=== PATIENT | female | born 1955 | race Caucasian/White ===

== ENCOUNTER → 2016-12-21 | Outpatient (CLI) | payer BC ==
[~2016-12-21] MED LIST: ALBUTEROL0.09 MG/A2 IH; MULTI-VITAMIN1 EACH PO
--- NOTE | ~2016-12-21 | ST ---
[place], [place] EXERCISE STRESS TEST REPORT NAME: [facility]ORD [facility]: [id number] UNIT #: [id number] ROOM: DOCTOR: ALE HO MD BIRTHDATE: [birth year] DOS: 12/21/2016 The patient exercise portion of the exercise stress test, the patient walked on the Rehan protocol for a duration of 6 minutes. Heart rate is 140, which is about 90% of predicted heart rate. Procedure terminated on completion of protocol. Baseline cardiogram sinus rhythm with poor R-wave progression. With exercise, no new EKG changes. No chest discomfort. No dysrhythmia. Blood pressure and heart rate response was normal with adequate double product. FINAL IMPRESSION: No EKG changes with exercise. No chest pain with exercise. No dysrhythmia with exercise. Blood pressure and heart rate responses normal. This is a negative exercise stress test by EKG criteria. ALE HO MD CM:STRESS:EXERCISE STRESS TEST REPORT [id number] ALE HO MD
--- NOTE | 2016-12-21 07:00 | NUR ---
INFORMED CONSENT OBTAINED FOR STANDARG GXT WITH DR. HO. RESTING EKG NSR WITH A RESTING HR OF 60 WITH BP OF 130/68 AND HR OF 65 WITH BP OF 122/60. PT COMPLETED 6:00 OF A 2:00 DOMINIQUE PROTOCOL WITH COMPLETION OF STAGE III AT 3.4 MPH AND 14% GRADE. REACHED A PEAK HR OF 141 WHICH IS 90% OF PREDICTED MAX WITH A PEAK BP OF 184/50. TEST TERMINATED BECAUSE OF FATIGUE. HAD NO CHEST PAIN OR ANY EKG CHANGES. HAS A GOOD EXERCISE. NEGATIVE STANDARD GXT AT 90% OF PMHR. LAST RECOVERY HR OF 80 WITH BP OF 158/64. DISCHARGED IN STABLE CONDITION.
== END | disposition home or self-care (01) ==
LOC: CARD 02:58
DX: R07.89 Other chest pain (principal)

== ENCOUNTER 2018-01-18 12:01 | Inpatient (IN) | payer OTHER ==
[~2018-01-18] VITALS: Ht 157.5 cm; Wt 72.6 kg
--- NOTE | ~2018-01-18 | CON ---
[place], [place] REPORT OF CONSULTATION NAME[id number] UNIT #: [id number] ROOM: 403 DOCTOR: JUAN PARISI MD BIRTHDATE: [birth year] DOS: 01/18/2018 REASON FOR CONSULTATION: New onset atrial fibrillation. HISTORY OF PRESENT ILLNESS: The patient is a 62-year-old woman who has no previous history of heart disease. She is very active and exercises on a daily basis. She tells me that about 2-3 weeks ago, she began kickboxing. She states that when she started doing that she began having episodes of palpitations after her workout. The palpitations would last 50 minutes to an hour and typically improved spontaneously. They did make her feel lightheaded, but she denied any focal weakness. Today, she felt like she might almost pass out and therefore became frightened and came to the Emergency Room. In the Emergency Room, she was found to be in atrial fibrillation with a rapid ventricular response. The heart rate in the Emergency Room was 120. With rest she did convert spontaneously from atrial fibrillation, which was her admission rhythm to sinus rhythm. She was admitted to the hospital for further evaluation and we were asked to see her. The patient denies any history of hypertension or diabetes. She does not use any recreational drugs or decongestants. She denies any history of diabetes, myocardial infarction or stroke. She has had intermittent chest pains in the last year. An exercise stress test done one year ago and supervised by Dr. Vo was negative at 90% maximum predicted heart rate. PAST MEDICAL HISTORY: Includes, 1. Chest pain. The patient was evaluated for chest pain in 12/2016 without any cardiac etiology found. 2. Stress test 12/21/2016, 6 minutes Rehan protocol 90% maximum predicted heart rate. No EKG changes, no arrhythmias, no chest pain, low risk study. 3. The patient was hyperglycemic with a sugar of 144 on admission to the hospital on this occasion. MEDICATIONS PRIOR TO ADMISSION: Albuterol and a multivitamin. REVIEW OF SYSTEMS: The patient denies diplopia or loss of vision. She did have lightheadedness when she had the palpitations, but feels well now, she has had some discomfort in her chest when her heart is racing. She denies nausea or vomiting. She denies fevers, chills, sweats or recent weight change. She denies orthopnea or PND. She denies any recent syncopal episodes. She denies hemoptysis or hematemesis. She denies heat or cold intolerance. She denies polyuria, polydipsia. She denies change in bowel or bladder habits and denies blood in her stools or urine. She denies any peripheral edema. She did have some back pain after an accident lifting objects at home. This has resolved. The remainder of the review of systems is negative except as noted above. FAMILY HISTORY: Her mother had lung cancer and at age 79. Mother also had a history of an SD at a later age. Her father at 79 from Parkinson's disease. ALLERGIES: THE PATIENT LISTS AN ALLERGY TO CEDAR WOOD. [place], [place] REPORT OF CONSULTATION NAME: CARMELA RUTHERFORD UNIT #: [id number] ROOM: [facility] DOCTOR: JUNA PARISI MD BIRTHDATE: [birth year] SOCIAL HISTORY: The patient is unmarried. She was a smoker, but quit 10 years ago. She does not consume any alcohol or illegal drugs. PHYSICAL EXAMINATION: GENERAL: The patient is well-nourished white female who is awake, alert and oriented. VITAL SIGNS: Pulse is 64 and regular, blood pressure is 118/63. She is afebrile. She weighs 72.6 kg and has a body mass index of 29.3. HEENT: Normocephalic and atraumatic. Extraocular muscles are intact. Sclerae are clear. Pupils equal, round and react to light. The oral mucosa is moist. Tongue is midline. NECK: Supple. She has no jugular distention. Carotids are full. She has no bruits. She has no neck or supraclavicular masses and no thyromegaly. RESPIRATORY: Respirations are unlabored. Her chest is clear to auscultation and percussion. She has no presacral edema or chest wall tenderness. CARDIOVASCULAR: Her heart has a regular rhythm without rubs or gallops. She has a grade 2/6 holosystolic murmur at the apex. No diastolic murmurs are present. The PMI is not displaced. There is no precordial heave, lift or thrill. ABDOMEN: Soft and normally active without masses, organomegaly or bruits. EXTREMITIES: Showed no edema. Peripheral pulses are palpable in the feet bilaterally. LABORATORY DATA: I reviewed her electrocardiogram. It did show atrial fibrillation with a rapid ventricular response on admission. A followup tracing after she converted to sinus rhythm showed sinus rhythm at a rate of 62 with nonspecific T-wave flattening. TSH is normal. Serial troponin levels have been normal. IMPRESSIONS: 1. New onset atrial fibrillation. The patient does have risk factors of female gender, possible glucose intolerance, and age of almost 63 years. I think that her risk of stroke is much higher than average and therefore she should be managed with long-term anticoagulation for stroke prophylaxis. I have started her on Xarelto for this. I also think that she should be on a beta chon for the time being to help prevent exercise-induced arrhythmias. I did start her on metoprolol for this. We will be getting an echocardiogram to look for structural heart disease. If that is normal and she is responding well to the medications. She can be discharged to home for outpatient followup. Since she had a normal stress test within the last year, I do not think we need to repeat that at this time. I thank the hospitalist physicians for asking our advice regarding her care. [place], [place] REPORT OF CONSULTATION NAME: CARMELA RUTHERFORD UNIT #: [id number] ROOM: 403 DOCTOR: JUAN PARISI MD BIRTHDATE: [birth year] JUAN PARISI MD CM:CONSTR:REPORT OF CONSULTATION 20 01/19/18 0412 interface
--- NOTE | ~2018-01-18 | PR ---
[place], [place] PROGRESS NOTE NAME: [id number] UNIT #: [id number] ROOM: 403 DOCTOR: JUAN PARISI MD BIRTHDATE: [birth year] DOS: 01/19/2018 SUBJECTIVE: The patient was seen at her bedside today 01/19/2018 for followup of her newly documented atrial fibrillation. She has felt well overnight and has remained in sinus rhythm. She was placed on metoprolol and Xarelto and has tolerated the drugs well. Her TSH was normal. I reviewed her echocardiogram today. It showed normal left ventricular size and function with mildly enlarged left atrium. There was no valve disease, but there was Doppler evidence for stage 2 left ventricular diastolic relaxation abnormalities. PHYSICAL EXAMINATION: VITAL SIGNS: Her pulse is 53 and regular, blood pressure is 127/70. She is afebrile. She weighs 72.6 kilograms. NECK: Supple. She has no jugular distention. Carotids are full. LUNGS: Respirations are unlabored. Chest is clear. HEART: Has a regular rhythm with no rubs or gallops. She has grade 2/6 holosystolic murmur at the apex, but no diastolic murmurs. ABDOMEN: Not benign. EXTREMITIES: Showed no edema. IMPRESSION: New onset atrial fibrillation. PLAN: The patient is back in sinus rhythm and tolerating a beta chon and a direct oral anticoagulation medications without problems. I will discharge her to home on these medications. I would like to follow up with her in the office in about a month. I thank the hospitalist physicians for asking our advice regarding her care. JUAN PARISI MD CM:PNTRANS [id number] JUAN PARISI MD 01/19/18 1236 interface
--- NOTE | ~2018-01-18 | EKG ---
[place], [place] ELECTROCARDIOGRAM REPORT NAME: CARMELA RUTHERFORD UNIT #: [id number] ROOM: 403 DOCTOR: ALBINA DRAFT REPORT BIRTHDATE: [birth year] [facility] Test Date: 2018-01-18 Test Time: 19:12:36 Pat Name: CARMELA RUTHERFORD Department: Room: 403 1 Gender: F Claims Director: JOVANNY : 1955 Requested By: DARIELA HATHAWAY Order Number: [id number] Reading MD: Terence Molina MD Measurements Intervals [place] Rate: 62 P: 66 ID: 160 QRS: 61 QRSD: 77 T: 30 QT: 393 QTc: 399 Interpretive Statements Sinus rhythm Borderline T wave abnormalities Baseline wander in lead(s) V2 No change from earlier ECG this date. Electronically Signed On 01-18-2018 19:56:24 PDT by Terence Molina MD CM:EKGRPT:ELECTROCARDIOGRAM REPORT 11 55 DARIELA MONTEMAYOR DRAFT REPORT DARIELA HATHAWAY MD
--- NOTE | ~2018-01-18 | EKG ---
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
--- NOTE | ~2018-01-18 | EKG ---
[place], [place] ELECTROCARDIOGRAM REPORT NAME: CARMELA RUTHERFORD UNIT #: [id number] ROOM: 403 DOCTOR: ALBINA DRAFT REPORT BIRTHDATE: [birth year] [facility] Test Date: 2018-01-18 Test Time: 12:09:03 Pat Name: CARMELA RUTHERFORD Department: Room: 403 Gender: F Care Team Assistant: MADELAINE : 1955 Requested By: DARIELA HATHAWAY Order Number: [id number] Reading MD: Terence Molina MD Measurements Intervals [place] Rate: 115 P: [place]: QRS: 69 QRSD: 84 T: 15 QT: 318 QTc: 440 Interpretive Statements Atrial fibrillation Minimal ST depression, diffuse leads Electronically Signed On 01-18-2018 19:46:58 PDT by Terence Molina MD CM:EKGRPT:ELECTROCARDIOGRAM REPORT 1209 45 DARIELA MONTEMAYOR DRAFT REPORT DARIELA HATHAWAY MD
--- NOTE | ~2018-01-18 | EKG ---
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 Electronically Signed On 01-18-2018 19:47:53 PDT by Terence Molina MD CM:EKGRPT:ELECTROCARDIOGRAM REPORT [id number] 46 DARIELA MONTEMAYOR DRAFT REPORT DARIELA HATHAWAY MD
[2018-01-18 12:06] VITALS: BP 137/77
[2018-01-18 12:26] LABS: BASO % 0.7 % (0.0-1.0); EOS # 0.1 10*3/uL (0.0-0.4); EOS % 1.7 % (1.0-4.0); HEMOGLOBIN 13.2 g/dl (12.0-16.0); LYMPH # 1.1 10*3/uL (1.3-4.4); MEAN CELL VOLUME 85.7 fl (81.0-99.0); MEAN CORPUSCULAR HGB CONC 33.8 g/dl (33.0-37.0); MEAN PLATELET VOLUME 10.9 fl (9.6-12.3); MONO # 0.6 10*3/uL (0.1-1.0); MONO % 10.7 % (3.0-9.0); NEUT % 67.6 % (47.0-73.0); PLATELET COUNT AUTOMATED 257 10*3/uL (130-400); RED BLOOD COUNT 4.55 10*6/uL (4.10-5.10); RED CELL DISTRI WIDTH 13.8 % (0-14.5); WHITE BLOOD COUNT 5.9 10*3/uL (4.8-10.8)
[2018-01-18 12:38] LABS: ACT PARTIAL THROMBO TIME 22.6 SECONDS (20.8-31.5)
[2018-01-18 12:46] LABS: ALBUMIN 4.1 gm/dl (3.1-4.5); ALKALINE PHOSPHATASE 78 U/L (45-117); BUN 13 mg/dl (7-24); CHLORIDE 104 mmol/L (98-107); CREATININE 1.01 mg/dL (0.55-1.02); POTASSIUM 4.2 mmol/L (3.5-5.1); SGOT/AST 28 IU/L (3-35); SGPT/ALT 37 U/L (12-78); SODIUM 138 mmol/L (136-145); TOTAL PROTEIN 6.6 gm/dL (6.4-8.2)
[2018-01-18 12:55] VITALS: BP 106/68
[2018-01-18 12:56] LABS: TROPONIN I < 0.015 ng/ml (<0.045)
[2018-01-18 14:00] VITALS: BP 118/57
[2018-01-18 14:16] LABS: COLOR YELLOW (YELLOW)
[2018-01-18 14:17] LABS: BILIRUBIN NEGATIVE (NEGATIVE); BLOOD NEGATIVE (NEGATIVE); CLARITY CLEAR (CLEAR); GLUCOSE NEGATIVE (NEGATIVE); KETONE NEGATIVE (NEGATIVE); LEUKO ESTERASE NEGATIVE (NEGATIVE); NITRITE NEGATIVE (NEGATIVE); SPECIFIC GRAVITY 1.005 (1.005-1.030); UROBILINOGEN 0.2 E.U./dl (0.2-1.0)
[2018-01-18 14:21] LABS: EPITHELIAL CELLS 0-2; WBC 0-2 wbc/hpf (0-5)
[2018-01-18 16:00] VITALS: BP 118/62; BP 122/70
[2018-01-18 20:00] VITALS: BP 118/63
[2018-01-19] VITALS: BP 123/60
[2018-01-19 06:48] LABS: BASO # 0.1 10*3/uL (0.0-0.1); EOS # 0.2 10*3/uL (0.0-0.4); EOS % 4.2 % (1.0-4.0); HEMOGLOBIN 12.8 g/dl (12.0-16.0); LYMPH # 0.9 10*3/uL (1.3-4.4); LYMPH % 18.7 % (27.0-41.0); MEAN CELL VOLUME 88.6 fl (81.0-99.0); MEAN CORPUSCULAR HGB 29.1 pg (27.0-31.0); MEAN CORPUSCULAR HGB CONC 32.8 g/dl (33.0-37.0); MEAN PLATELET VOLUME 11.5 fl (9.6-12.3); MONO # 0.7 10*3/uL (0.1-1.0); MONO % 15.1 % (3.0-9.0); NEUT # 2.9 10*3/uL (2.3-7.9); NEUT % 60.8 % (47.0-73.0); PLATELET COUNT AUTOMATED 219 10*3/uL (130-400); RED CELL DISTRI WIDTH 13.8 % (0-14.5); WHITE BLOOD COUNT 4.8 10*3/uL (4.8-10.8)
[2018-01-19 06:59] LABS: ALBUMIN 3.6 gm/dl (3.1-4.5); BUN 14 mg/dl (7-24); CHLORIDE 112 mmol/L (98-107); CHOLESTEROL 157 mg/dL (<200); CREATININE 0.76 mg/dL (0.55-1.02); PHOSPHOROUS 3.9 mg/dL (2.5-4.9); POTASSIUM 4.4 mmol/L (3.5-5.1); SGOT/AST 23 IU/L (3-35); SGPT/ALT 34 U/L (12-78); SODIUM 147 mmol/L (136-145); TOTAL PROTEIN 6.2 gm/dL (6.4-8.2); TRIGLYCERIDES 91 mg/dl (<150); VLDL CHOLESTEROL 18 mg/dL (6-40)
[2018-01-19 07:01] LABS: ALKALINE PHOSPHATASE 70 U/L (45-117); FREE T4 1.16 ng/dl (0.76-1.46); HDL CHOLESTEROL 46 mg/dl (40-60); LDL CHOLESTEROL 93 mg/dL (9-159)
[2018-01-19 08:00] VITALS: BP 127/70
[2018-01-19 09:58] LABS: VITAMIN D, 25-HYDROXY 36.1 ng/mL (30-100)
[2018-01-19 12:00] VITALS: BP 112/53
[2018-01-19] MEDS ORDERED: METOPROLOL SUCC25 M2 PO (13:47)
[2018-01-19] MEDS ORDERED: XARE20MG PO (13:47)
== END 2018-01-19 14:14 | disposition home or self-care (01) | DRG 310 ==
LOC: ED → 4E 12:43 → EDHOLD 12:43 → 4E 12:57
PROVIDERS: Emergency Medicine; Registered Nurse
DX: I48.91 Unspecified atrial fibrillation (principal); R73.9 Hyperglycemia, unspecified; R55 Syncope and collapse; Z79.82 Long term (current) use of aspirin; Z79.899 Other long term (current) drug therapy; Z83.79 Family history of other diseases of the digestive system; Z80.1 Family history of malignant neoplasm of trachea, bronchus and lung; Z88.8 Allergy status to other drugs, medicaments and biological substances

== ENCOUNTER → 2018-06-20 | Outpatient (CLI) | payer OTHER ==
[~2018-06-20] MED LIST changes: +METOPROLOL SUCC25 M2 PO; +XARE20MG PO
== END | disposition home or self-care (01) ==
LOC: RESCLI 10:13
DX: I48.0 Paroxysmal atrial fibrillation (principal)

== ENCOUNTER → 2018-09-18 | Outpatient (CLI) | payer MEDICARE, OTHER ==
[2018-09-18 09:47] LABS: BASO % 0.6 % (0.0-1.0); EOS # 0.1 10*3/uL (0.0-0.4); EOS % 1.7 % (1.0-4.0); HEMATOCRIT 40.9 % (37.0-47.0); HEMOGLOBIN 13.4 g/dl (12.0-16.0); LYMPH % 14.9 % (27.0-41.0); MEAN CELL VOLUME 86.7 fl (81.0-99.0); MEAN CORPUSCULAR HGB 28.4 pg (27.0-31.0); MEAN CORPUSCULAR HGB CONC 32.8 g/dl (33.0-37.0); MEAN PLATELET VOLUME 12.1 fl (9.6-12.3); MONO # 0.8 10*3/uL (0.1-1.0); MONO % 11.3 % (3.0-9.0); NEUT # 4.8 10*3/uL (2.3-7.9); NEUT % 71.2 % (47.0-73.0); PLATELET COUNT AUTOMATED 223 10*3/uL (130-400); RED BLOOD COUNT 4.72 10*6/uL (4.10-5.10); RED CELL DISTRI WIDTH 14.5 % (0-14.5); WHITE BLOOD COUNT 6.7 10*3/uL (4.8-10.8)
[2018-09-18 10:25] LABS: CHLORIDE 107 mmol/L (98-107); POTASSIUM 4.8 mmol/L (3.5-5.1); SODIUM 141 mmol/L (136-145)
[2018-09-18 10:45] LABS: BUN 22 mg/dl (7-24); CHOLESTEROL 180 mg/dL (<200); CREATININE 0.89 mg/dL (0.55-1.02); HDL CHOLESTEROL 59 mg/dl (40-60); LDL CHOLESTEROL 105 mg/dL (9-159); TRIGLYCERIDES 79 mg/dl (<150); VLDL CHOLESTEROL 16 mg/dL (6-40)
[2018-09-18 11:33] LABS: VITAMIN D, 25-HYDROXY 46.8 ng/mL (30-100)
== END | disposition home or self-care (01) ==
LOC: LAB 09:00
PROVIDERS: Internal Medicine; Student in an Organized Health Care Education/Training Program
DX: I48.0 Paroxysmal atrial fibrillation (principal); E66.3 Overweight; E55.9 Vitamin D deficiency, unspecified; W57.XXXA Bitten or stung by nonvenomous insect and other nonvenomous arthropods, initial encounter; Z79.899 Other long term (current) drug therapy

== ENCOUNTER → 2018-09-19 | Outpatient (CLI) | payer MEDICARE, OTHER | LOC: RESCLI 02:32 | DX: I48.0 Paroxysmal atrial fibrillation (principal); J30.2 Other seasonal allergic rhinitis; J45.20 Mild intermittent asthma, uncomplicated; Z79.899 Other long term (current) drug therapy ==

== ENCOUNTER 2019-05-18 13:45 | Emergency (ER) | payer MEDICARE, OTHER ==
[~2019-05-18] VITALS: Ht 157.4 cm; Wt 72.6 kg
[2019-05-18] MEDS ORDERED: IBUPROFEN600 MG PO (17:07)
== END 2019-05-18 17:21 | disposition home or self-care (01) ==
LOC: ED 13:45
DX: M25.511 Pain in right shoulder (principal); X58.XXXA Exposure to other specified factors, initial encounter; Y93.89 Activity, other specified; Y92.89 Other specified places as the place of occurrence of the external cause; Y99.8 Other external cause status

== ENCOUNTER → 2019-06-12 | Outpatient (CLI) | payer MEDICARE, OTHER ==
[~2019-06-12] MED LIST changes: +IBUPROFEN600 MG PO
== END | disposition home or self-care (01) ==
LOC: RESCLI 00:37
DX: M25.519 Pain in unspecified shoulder (principal); I48.0 Paroxysmal atrial fibrillation; E66.3 Overweight; R09.89 Other specified symptoms and signs involving the circulatory and respiratory systems; Z79.899 Other long term (current) drug therapy

== ENCOUNTER → 2019-06-13 | Outpatient (CLI) | payer MEDICARE, OTHER ==
[2019-06-13 10:35] LABS: BASO # 0.1 10*3/uL (0.0-0.1); BASO % 0.9 % (0.0-1.0); EOS # 0.1 10*3/uL (0.0-0.4); EOS % 1.9 % (1.0-4.0); HEMATOCRIT 39.9 % (37.0-47.0); HEMOGLOBIN 12.9 g/dl (12.0-16.0); LYMPH # 1.3 10*3/uL (1.3-4.4); LYMPH % 22.3 % (27.0-41.0); MEAN CELL VOLUME 86.2 fl (81.0-99.0); MEAN CORPUSCULAR HGB 27.9 pg (27.0-31.0); MEAN CORPUSCULAR HGB CONC 32.3 g/dl (33.0-37.0); MEAN PLATELET VOLUME 11.5 fl (9.6-12.3); MONO # 0.8 10*3/uL (0.1-1.0); MONO % 12.8 % (3.0-9.0); NEUT # 3.6 10*3/uL (2.3-7.9); NEUT % 61.8 % (47.0-73.0); PLATELET COUNT AUTOMATED 300 10*3/uL (130-400); RED BLOOD COUNT 4.63 10*6/uL (4.10-5.10); RED CELL DISTRI WIDTH 13.7 % (0-14.5); WHITE BLOOD COUNT 5.8 10*3/uL (4.8-10.8)
[2019-06-13 11:01] LABS: ALBUMIN 3.8 gm/dl (3.1-4.5); ALKALINE PHOSPHATASE 61 U/L (45-117); BUN 20 mg/dl (7-24); CHLORIDE 110 mmol/L (98-107); CHOLESTEROL 206 mg/dL (<200); CREATININE 0.91 mg/dL (0.55-1.02); HDL CHOLESTEROL 48 mg/dl (40-60); LDL CHOLESTEROL 139 mg/dL (9-159); POTASSIUM 4.3 mmol/L (3.5-5.1); SGOT/AST 22 IU/L (3-35); SGPT/ALT 31 U/L (12-78); SODIUM 142 mmol/L (136-145); TOTAL PROTEIN 6.6 gm/dL (6.4-8.2); TRIGLYCERIDES 94 mg/dl (<150); VLDL CHOLESTEROL 19 mg/dL (6-40)
== END | disposition home or self-care (01) ==
LOC: LAB 09:02
PROVIDERS: Student in an Organized Health Care Education/Training Program
DX: I48.0 Paroxysmal atrial fibrillation (principal); E66.3 Overweight; E55.9 Vitamin D deficiency, unspecified; Z79.899 Other long term (current) drug therapy

== ENCOUNTER → 2019-12-05 | Outpatient (CLI) | payer MEDICARE, OTHER | END | disposition home or self-care (01) | LOC: RESCLI 05:50 | DX: I48.0 Paroxysmal atrial fibrillation (principal); J45.909 Unspecified asthma, uncomplicated; Z12.31 Encounter for screening mammogram for malignant neoplasm of breast; Z78.0 Asymptomatic menopausal state; Z79.899 Other long term (current) drug therapy; Z98.890 Other specified postprocedural states; Z98.51 Tubal ligation status; Z87.891 Personal history of nicotine dependence ==

== ENCOUNTER → 2019-12-20 | Outpatient (CLI) | payer MEDICARE, OTHER | END | disposition home or self-care (01) | LOC: MAMMO 13:22 | PROVIDERS: ATTEND Internal Medicine | DX: Z12.31 Encounter for screening mammogram for malignant neoplasm of breast (principal); Z78.0 Asymptomatic menopausal state ==

== ENCOUNTER → 2020-03-30 | Outpatient (CLI) | payer MEDICARE, OTHER | END | disposition home or self-care (01) | LOC: COVID19 14:00 | PROVIDERS: ATTEND Internal Medicine | DX: U07.1 COVID-19 (principal) ==

== ENCOUNTER → 2020-04-22 | Outpatient (CLI) | payer MEDICARE, OTHER | END | disposition home or self-care (01) | LOC: RESCLI 00:37 | PROVIDERS: ATTEND Emergency Medicine | DX: J45.20 Mild intermittent asthma, uncomplicated (principal); I48.0 Paroxysmal atrial fibrillation; J45.909 Unspecified asthma, uncomplicated; Z79.899 Other long term (current) drug therapy ==

== ENCOUNTER → 2020-04-23 | Outpatient (CLI) | payer MEDICARE, OTHER ==
[2020-04-23 08:03] LABS: BASO % 0.3 % (0.0-1.0); EOS # 0.1 10*3/uL (0.0-0.4); EOS % 1.3 % (1.0-4.0); HEMATOCRIT 41.2 % (37.0-47.0); LYMPH # 0.9 10*3/uL (1.3-4.4); MEAN CELL VOLUME 84.9 fl (81.0-99.0); MEAN CORPUSCULAR HGB 27.2 pg (27.0-31.0); MEAN PLATELET VOLUME 11.3 fl (9.6-12.3); MONO # 0.8 10*3/uL (0.1-1.0); MONO % 13.1 % (3.0-9.0); NEUT # 4.4 10*3/uL (2.3-7.9); NEUT % 69.8 % (47.0-73.0); PLATELET COUNT AUTOMATED 272 10*3/uL (130-400); RED BLOOD COUNT 4.85 10*6/uL (4.10-5.10); RED CELL DISTRI WIDTH 13.2 % (0-14.5); WHITE BLOOD COUNT 6.3 10*3/uL (4.8-10.8)
[2020-04-23 08:04] LABS: BILIRUBIN Negative (Negative); BLOOD Negative (Negative); CLARITY Clear (Clear); COLOR Yellow (Yellow); GLUCOSE Negative (Negative); KETONE Negative (Negative); LEUKO ESTERASE Negative (Negative); NITRITE Negative (Negative); PH 6.5 (4.5-8.0); SPECIFIC GRAVITY 1.015 (1.001-1.030); UROBILINOGEN 0.2 E.U./dl (0.0-1.0)
[2020-04-23 08:30] LABS: ALBUMIN 3.7 gm/dl (3.1-4.5); ALKALINE PHOSPHATASE 87 U/L (45-117); BUN 11 mg/dl (7-24); CHLORIDE 109 mmol/L (98-107); CHOLESTEROL 189 mg/dL (<200); CREATININE 0.92 mg/dL (0.55-1.02); HDL CHOLESTEROL 44 mg/dl (40-60); LDL CHOLESTEROL 117 mg/dL (9-159); POTASSIUM 4.1 mmol/L (3.5-5.1); SGOT/AST 19 IU/L (3-35); SGPT/ALT 24 U/L (12-78); SODIUM 142 mmol/L (136-145); TOTAL PROTEIN 6.6 gm/dL (6.4-8.2); TRIGLYCERIDES 139 mg/dl (<150); VLDL CHOLESTEROL 28 mg/dL (6-40)
[2020-04-23 08:54] LABS: WBC 0-2 wbc/hpf (0-5)
[2020-04-23 08:55] LABS: BACTERIA TRACE; EPITHELIAL CELLS 0-2
[2020-04-23 09:20] LABS: VITAMIN D, 25-HYDROXY 35.7 ng/mL (30-100)
== END | disposition home or self-care (01) ==
LOC: LAB 07:36
PROVIDERS: Student in an Organized Health Care Education/Training Program; ATTEND Internal Medicine
DX: I48.0 Paroxysmal atrial fibrillation (principal); J45.20 Mild intermittent asthma, uncomplicated; Z79.899 Other long term (current) drug therapy

== ENCOUNTER → 2020-12-11 | Outpatient (CLI) | payer MEDICARE, OTHER | END | disposition home or self-care (01) | LOC: RESCLI 00:20 | PROVIDERS: ATTEND Internal Medicine | DX: Z12.39 Encounter for other screening for malignant neoplasm of breast (principal); J45.909 Unspecified asthma, uncomplicated; Z79.899 Other long term (current) drug therapy ==

== ENCOUNTER → 2021-06-15 | Outpatient (CLI) | payer MEDICARE, OTHER | END | disposition home or self-care (01) | LOC: CT 10:52 | PROVIDERS: ATTEND Internal Medicine Critical Care Medicine | DX: R91.1 Solitary pulmonary nodule (principal); R59.0 Localized enlarged lymph nodes ==

== ENCOUNTER → 2021-07-14 | Outpatient (CLI) | payer MEDICARE, OTHER ==
[2021-07-14 10:41] LABS: BILIRUBIN Negative (Negative); BLOOD Negative (Negative); CLARITY Clear (Clear); COLOR Yellow (Yellow); GLUCOSE Negative (Negative); KETONE Negative (Negative); LEUKO ESTERASE Negative (Negative); NITRITE Negative (Negative); SPECIFIC GRAVITY 1.015 (1.001-1.030); UROBILINOGEN 0.2 E.U./dl (0.0-1.0)
[2021-07-14 10:42] LABS: BASO % 0.7 % (0.0-1.0); EOS # 0.1 10*3/uL (0.0-0.4); EOS % 1.5 % (1.0-4.0); HEMATOCRIT 40.8 % (37.0-47.0); LYMPH # 0.9 10*3/uL (1.3-4.4); LYMPH % 17.3 % (27.0-41.0); MEAN CELL VOLUME 84.8 fl (81.0-99.0); MEAN CORPUSCULAR HGB 28.5 pg (27.0-31.0); MEAN CORPUSCULAR HGB CONC 33.6 g/dl (33.0-37.0); MEAN PLATELET VOLUME 11.4 fl (9.6-12.3); MONO # 0.6 10*3/uL (0.1-1.0); MONO % 11.6 % (3.0-9.0); NEUT # 3.7 10*3/uL (2.3-7.9); NEUT % 68.5 % (47.0-73.0); PLATELET COUNT AUTOMATED 232 10*3/uL (130-400); RED BLOOD COUNT 4.81 10*6/uL (4.10-5.10); RED CELL DISTRI WIDTH 13.6 % (0-14.5); WHITE BLOOD COUNT 5.4 10*3/uL (4.8-10.8)
[2021-07-14 10:57] LABS: URINE AMPHETAMINES < 1000 (1000ng/ml); URINE BARBITURATES < 200 (200ng/ml); URINE BENZODIAZEPINES < 200 (200ng/ml); URINE CANNABINOIDS (THC) < 50 (50ng/ml); URINE COCAINE < 300 (300ng/ml); URINE METHADONE < 300 (300ng/ml); URINE OPIATES < 300 (300ng/ml)
[2021-07-14 10:59] LABS: MUCOUS 1+; WBC 0-2 wbc/hpf (0-5); YEAST TRACE
[2021-07-14 11:00] LABS: ALKALINE PHOSPHATASE 62 U/L (45-117); BUN 17 mg/dl (7-24); CHLORIDE 107 mmol/L (98-107); CHOLESTEROL 205 mg/dL (<200); CREATININE 0.88 mg/dL (0.55-1.02); LDL CHOLESTEROL 133 mg/dL (9-159); POTASSIUM 4.2 mmol/L (3.5-5.1); SGOT/AST 26 IU/L (3-35); SGPT/ALT 40 U/L (12-78); SODIUM 140 mmol/L (136-145); TOTAL PROTEIN 6.7 gm/dL (6.4-8.2); TRIGLYCERIDES 140 mg/dl (<150)
[2021-07-14 11:02] LABS: URINE PHENCYCLIDINE < 25 (25ng/ml)
[2021-07-14 11:56] LABS: VITAMIN D, 25-HYDROXY 59.5 ng/mL (30-100)
== END | disposition home or self-care (01) ==
LOC: RESCLI 01:24
PROVIDERS: Hospitalist; ATTEND Student in an Organized Health Care Education/Training Program
DX: I48.0 Paroxysmal atrial fibrillation (principal); J45.20 Mild intermittent asthma, uncomplicated; H91.90 Unspecified hearing loss, unspecified ear; M62.830 Muscle spasm of back; J30.2 Other seasonal allergic rhinitis; E66.09 Other obesity due to excess calories; Z68.35 Body mass index [BMI] 35.0-35.9, adult; E78.00 Pure hypercholesterolemia, unspecified; Z79.899 Other long term (current) drug therapy; Z98.890 Other specified postprocedural states

== ENCOUNTER 2021-09-02 18:54 | Emergency (ER) | payer MEDICARE, OTHER ==
[~2021-09-02] VITALS: Ht 165.1 cm; Wt 77.1 kg
[2021-09-02 19:38] LABS: BASO % 0.6 % (0.0-1.0); EOS % 0.6 % (1.0-4.0); HEMATOCRIT 40.5 % (37.0-47.0); LYMPH # 0.8 10*3/uL (1.3-4.4); LYMPH % 13.1 % (27.0-41.0); MEAN CELL VOLUME 83.9 fl (81.0-99.0); MEAN CORPUSCULAR HGB 28.4 pg (27.0-31.0); MEAN CORPUSCULAR HGB CONC 33.8 g/dl (33.0-37.0); MEAN PLATELET VOLUME 10.8 fl (9.6-12.3); MONO % 15.2 % (3.0-9.0); NEUT # 4.4 10*3/uL (2.3-7.9); NEUT % 70.2 % (47.0-73.0); PLATELET COUNT AUTOMATED 235 10*3/uL (130-400); RED BLOOD COUNT 4.83 10*6/uL (4.10-5.10); RED CELL DISTRI WIDTH 13.4 % (0-14.5); WHITE BLOOD COUNT 6.2 10*3/uL (4.8-10.8)
[2021-09-02 19:56] LABS: ALKALINE PHOSPHATASE 75 U/L (45-117); BUN 17 mg/dl (7-24); CHLORIDE 107 mmol/L (98-107); CREATININE 0.92 mg/dL (0.55-1.02); POTASSIUM 4.4 mmol/L (3.5-5.1); SGOT/AST 32 IU/L (3-35); SGPT/ALT 47 U/L (12-78); SODIUM 138 mmol/L (136-145); TOTAL PROTEIN 6.9 gm/dL (6.4-8.2)
== END 2021-09-02 20:32 | disposition home or self-care (01) ==
LOC: ED 18:54
PROVIDERS: Internal Medicine
DX: U07.1 COVID-19 (principal); R79.82 Elevated C-reactive protein (CRP); Z79.899 Other long term (current) drug therapy

== ENCOUNTER → 2021-12-22 | Outpatient (CLI) | payer MEDICARE, OTHER | END | disposition home or self-care (01) | LOC: RESCLI 13:14 | PROVIDERS: ATTEND Internal Medicine | DX: J45.20 Mild intermittent asthma, uncomplicated (principal); K21.9 Gastro-esophageal reflux disease without esophagitis; J30.2 Other seasonal allergic rhinitis; I48.0 Paroxysmal atrial fibrillation; Z87.891 Personal history of nicotine dependence; Z79.899 Other long term (current) drug therapy ==

== ENCOUNTER → 2022-03-29 | Outpatient (CLI) | payer MEDICARE, OTHER | END | disposition home or self-care (01) | LOC: RESCLI 01:56 | PROVIDERS: ATTEND Internal Medicine | DX: C15.9 Malignant neoplasm of esophagus, unspecified (principal); J45.20 Mild intermittent asthma, uncomplicated; J30.2 Other seasonal allergic rhinitis; E78.00 Pure hypercholesterolemia, unspecified; Z98.890 Other specified postprocedural states; Z82.49 Family history of ischemic heart disease and other diseases of the circulatory system; Z87.891 Personal history of nicotine dependence; Z79.01 Long term (current) use of anticoagulants; Z79.899 Other long term (current) drug therapy ==

== ENCOUNTER → 2022-12-22 | Outpatient (CLI) | payer MEDICARE, OTHER | END | disposition home or self-care (01) | LOC: RESCLI 08:23 | PROVIDERS: ATTEND Student in an Organized Health Care Education/Training Program | DX: J45.909 Unspecified asthma, uncomplicated (principal); I48.0 Paroxysmal atrial fibrillation; K21.9 Gastro-esophageal reflux disease without esophagitis; C15.9 Malignant neoplasm of esophagus, unspecified; Z98.890 Other specified postprocedural states; Z87.891 Personal history of nicotine dependence; Z79.899 Other long term (current) drug therapy ==

== ENCOUNTER → 2024-09-27 | Outpatient (CLI) | payer MEDICARE, OTHER ==
[2024-09-27 14:45] LABS: BASO % 0.5 % (0.0-1.0); EOS # 0.1 10*3/uL (0.0-0.4); EOS % 1.6 % (1.0-4.0); MEAN CELL VOLUME 89.1 fl (81.0-99.0); MEAN CORPUSCULAR HGB 29.8 pg (27.0-31.0); MEAN CORPUSCULAR HGB CONC 33.4 g/dl (33.0-37.0); MEAN PLATELET VOLUME 9.9 fl (9.6-12.3); MONO # 0.7 10*3/uL (0.1-1.0); MONO % 11.7 % (3.0-9.0); NEUT # 4.5 10*3/uL (2.3-7.9); NEUT % 78.1 % (47.0-73.0); PLATELET COUNT AUTOMATED 212 10*3/uL (130-400); RED BLOOD COUNT 3.93 10*6/uL (4.10-5.10); RED CELL DISTRI WIDTH 14.5 % (0-14.5); WHITE BLOOD COUNT 5.8 10*3/uL (4.8-10.8)
[2024-09-27 15:18] LABS: ALKALINE PHOSPHATASE 121 U/L (46-116); BUN 9 mg/dl (9-23); CHLORIDE 102 mmol/L (98-107); CHOLESTEROL 150 mg/dL (<200); FREE T4 1.13 ng/dl (0.89-1.76); LDL CHOLESTEROL 81 mg/dL (9-159); POTASSIUM 4.2 mmol/L (3.4-5.1); SGPT/ALT 32 U/L (5-49); TRIGLYCERIDES 69 mg/dl (<150)
[2024-09-27 15:55] LABS: VITAMIN D, 25-HYDROXY 42.7 ng/mL (30-100)
== END | disposition home or self-care (01) ==
LOC: LAB 13:32 → RESCLI 13:32
PROVIDERS: Student in an Organized Health Care Education/Training Program; ATTEND Internal Medicine
DX: R19.04 Left lower quadrant abdominal swelling, mass and lump (principal); I48.0 Paroxysmal atrial fibrillation; J45.20 Mild intermittent asthma, uncomplicated; C15.9 Malignant neoplasm of esophagus, unspecified; J30.2 Other seasonal allergic rhinitis; E55.9 Vitamin D deficiency, unspecified; Z79.899 Other long term (current) drug therapy; Z88.8 Allergy status to other drugs, medicaments and biological substances; Z98.890 Other specified postprocedural states

== ENCOUNTER → 2024-11-02 | Outpatient (CLI) | payer MEDICARE, OTHER | END | disposition home or self-care (01) | LOC: RESCLI 01:32 | PROVIDERS: ATTEND Internal Medicine | DX: R19.00 Intra-abdominal and pelvic swelling, mass and lump, unspecified site (principal); J45.20 Mild intermittent asthma, uncomplicated; B37.9 Candidiasis, unspecified; I48.0 Paroxysmal atrial fibrillation; C15.9 Malignant neoplasm of esophagus, unspecified; K21.9 Gastro-esophageal reflux disease without esophagitis; J30.2 Other seasonal allergic rhinitis; J34.1 Cyst and mucocele of nose and nasal sinus; A69.20 Lyme disease, unspecified; Z12.39 Encounter for other screening for malignant neoplasm of breast; Z79.82 Long term (current) use of aspirin; Z79.899 Other long term (current) drug therapy ==

== ENCOUNTER → 2024-11-12 | Outpatient (CLI) | payer MEDICARE, OTHER ==
[~2024-11-12] MED LIST changes: +IOHEXOL 300 MG/ML 100 ML VIAL IV ONE
== END | disposition home or self-care (01) ==
LOC: CT 11-09 13:00
PROVIDERS: ATTEND Internal Medicine
DX: R19.00 Intra-abdominal and pelvic swelling, mass and lump, unspecified site (principal); I25.10 Atherosclerotic heart disease of native coronary artery without angina pectoris; M43.16 Spondylolisthesis, lumbar region

== ENCOUNTER → 2025-02-15 | Outpatient (CLI) | payer MEDICARE, OTHER ==
[~2025-02-15] MED LIST changes: -IOHEXOL 300 MG/ML 100 ML VIAL IV ONE
== END | disposition home or self-care (01) ==
LOC: RESCLI 02:33
PROVIDERS: ATTEND Family Medicine
DX: I48.0 Paroxysmal atrial fibrillation (principal); J45.20 Mild intermittent asthma, uncomplicated; J30.2 Other seasonal allergic rhinitis; C15.9 Malignant neoplasm of esophagus, unspecified; K21.9 Gastro-esophageal reflux disease without esophagitis; B37.9 Candidiasis, unspecified; J34.1 Cyst and mucocele of nose and nasal sinus; I25.10 Atherosclerotic heart disease of native coronary artery without angina pectoris; Z79.899 Other long term (current) drug therapy